=== PATIENT | female | born 1990 ===

== ENCOUNTER 2018-02-08 02:45 | Outpatient (CLI) | payer MEDICAID ==
[~2018-02-08] VITALS: Ht 165.1 cm; Wt 83.9 kg
[2018-02-08] MEDS ORDERED: NIFEdipine 10 MG CAP PO ONE ×2 (03:25→03:39)
[2018-02-08] MEDS ORDERED: TERBUTALINE SULF 1 MG/ML VIAL SUBQ PRN (03:25)
[2018-02-08] MEDS: LR(*) 1000 ML BAG 1,000 ML IV PRN ×2 (03:25→03:48)
[2018-02-08] MEDS ORDERED: TERBUTALINE SULF 1 MG/ML VIAL ONE (03:38)
[2018-02-08 05:00] VITALS: BP 120/73; Ht 165.1 cm; Wt 83.9 kg
[2018-02-11] MEDS ORDERED: PER PO ×2 (01:58→01:59)
== END 2018-02-08 05:40 | disposition home or self-care (01) ==
LOC: L&D 02:45 → OB 02:45 → UNDOADMOB 02:45 → UNDODISOB 05:40 → L&D 05:40 → EDSTATUS 02-10 07:30
PROVIDERS: ATTEND Obstetrics & Gynecology
DX: O47.1 False labor at or after 37 completed weeks of gestation (principal); Z3A.39 39 weeks gestation of pregnancy
CPT/HCPCS: 59025; 81001; 96372; G0463; J3105; J7120; 99213; G0378; G0379

== ENCOUNTER 2018-02-08 21:45 | Inpatient (IN) | payer MEDICAID ==
[~2018-02-08] VITALS: Ht 165.1 cm; Wt 83.0 kg
[2018-02-08 05:00] VITALS: Ht 165.1 cm; Wt 83.0 kg
[2018-02-08] MEDS ORDERED: OXYTOCIN 30 UNIT/D5LR 500 ML 500 ML IV PRN (22:42)
[2018-02-08] MEDS ORDERED: LR(*) 1000 ML BAG 1,000 ML ONE (22:42)
[2018-02-08] MEDS ORDERED: LR(*) 1000 ML BAG 1,000 ML IV SCH (22:42)
[2018-02-08] MEDS ORDERED: FAMOTIDINE(*) 20MG/50ML PREMIX 50 ML IVPB PRN (22:42)
[2018-02-08] MEDS ORDERED: cefOXitin/DEX(*) 2GM/50ML PREM 50 ML IVPB PRN (22:45)
[2018-02-08] MEDS ORDERED: METOCLOPRAMIDE 10 MG/2 ML SDV IVP PRN (22:45)
[2018-02-08] MEDS ORDERED: FENTANYL/ROPIVACAINE 100 ML BAG EPI PRN (22:45)
[2018-02-08] MEDS ORDERED: BUPIVACAINE 0.5% INJ 30ML VIAL EPI PRN (22:45)
[2018-02-08] MEDS ORDERED: ePHEDrine 25 MG/5 ML DISP.SYR IVP PRN (22:45)
[2018-02-08] MEDS ORDERED: BUPIVACAINE 0.25% MPF INJ EPI PRN (22:45)
[2018-02-08] MEDS ORDERED: LIDOCAINE 1% LOCAL 300 MG/30ML INJ PRN (22:45)
[2018-02-08] MEDS ORDERED: LIDOCAINE/SOD BICARB 8.4% SYR SC PRN (22:45)
[2018-02-08] MEDS ORDERED: fentaNYL CITR 100 MCG/2 ML AMP IVP PRN (22:45)
[2018-02-08] MEDS ORDERED: LIDO/EPI 2% MPF 1:200,000 20ML EPI PRN (22:45)
[2018-02-08] MEDS ORDERED: EPIDURAL KEYS XX PRN (22:45)
[2018-02-08] MEDS ORDERED: FLUSH 10 ML SYR IVP PRN (22:45)
[2018-02-08] MEDS ORDERED: fentaNYL CITR 100 MCG/2 ML AMP IT PRN (22:45)
[2018-02-08] MEDS ORDERED: LIDOCAINE/PF 2% 200MG/10ML AMP 200 MG/10 ML AMPUL EPI PRN (22:45)
--- NOTE | 2018-02-08 22:52 | History & Physical ---
History of Present Illness Age of Patient: 27 : 2 Para or TPAL: 1001 EDC per LMP: Feb 11, 2018 EDC per U/S: Feb 14, 2018 Estimated Gestational Age: 39.4 Chief Complaint Painful contractions History of Present Illness Pt is a 27 y/o @ 39-4/7 weeks gestation who presents to L&D with a chief complaint of contractions. Pt reports contractions starting a few hours ago. Reports no loss of amniotic fluid. No vaginal bleeding. History Patient's Blood Type: AB Negative Rubella Status: Immune Group B Strep Screen: Negative Obstetrical History: Failure to progress. Prior C/S X 1 Past Medical History: PCN allergy, but unknown reaction Social History: 1/2 pack per day. aileen Med Rec Home Meds No Active Prescriptions or Reported Meds Review of Systems All Systems Reviewed/Normal: Yes, Except as Noted Constitutional: No Fever, No Weight Loss, No Weight Gain, No Chills, No Night Sweats, No Other Neurological: No Syncope, No Confusion, No Weakness, No Dizziness, No Slurred Speech, No Other Eyes: No Vision Change, No Loss of Vision, No Photophobia, No Other ENT: No Hearing Loss, No Sinus Congestion, No Sore Throat, No Ear Ache, No Tinnitus, No Other Cardiovascular: No Chest Pain, No Palpitations, No Orthostatic Hypotension, No Other Respiratory: No Shortness of Breath, No Cough, No Wheezing, No Other Gastrointestinal: No Nausea, No Vomiting, No Diarrhea, No Dysphagia, No Constipation, No Early Satiety, No Hematemesis, No Hematochezia, No Melena, No Abdominal Pain, No Other Genitourinary: No Dysuria, No Hematuria, No Urinary Incontinence, No Other Musculoskeletal: No Pain, No Sprain, No Strain, No Impaired Mobility, No Other Psychiatric: No Depression, No Anxiety, No Other Exam General Exam General Apperance: Alert/Awake/No Acute Distress Neuro: No Gross deficits Eyes: Normal Extraocular Movement & Vison ENT: Normal Cardiovascular: Regular Rate and Rhythm Respiratory: No Respiratory Distress, Clear to Auscultation Abdomen: Soft, Non-Tender, Non-Distended : Normal Musculoskeletal: No Weakness/Pain Extremities: No Cyanosis,Clubbing or Edema Integumentary: Skin Intact without Lesions or Rash Psychological: Alert & Oriented X3, Appropriate Mood & Affect Cervical Dialation: 2 Cervical Effacement (%): 80 Cervical Consistency: Soft Cervical Position: Anterior Station: -2 Presentation: Vertex Uterine Contractions(Q min): 5 Uterine Contraction Strength: Moderate UC Resting Tone: Soft Fetus Feeling Movement?: Yes Heart Tones: 135 Heart Tone Variabilty: Moderate FHT Accelerations: 15X15 FHT Decelerations: None FHT Category: I Medical Decision Making Pre-Admit Course Medical Record Review: Yes VTE Prophylasis: Adult Deep Vein Thrombosis/Pulmonary: No Assessment and Plan 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 D/W Dr. Sainz who will attend delivery. Pt care by W. (2) Spontaneous onset of labor STEPHEN LANZA DO Feb 08, 2018 22:52
[2018-02-08 23:04] LABS: PLATELET COUNT, AUTOMATED 200 K/uL (150-450)
[2018-02-08] MEDS ORDERED: MORPHINE PF 5 MG/10 ML AMP ONE (23:04)
[2018-02-08] MEDS ORDERED: ePHEDrine 25 MG/5 ML DISP.SYR IVP ONE (23:21)
[2018-02-08] MEDS ORDERED: OXYTOCIN 10 UNIT/ML SDV ONE ×2 (23:30)
[2018-02-08] MEDS ORDERED: MEPERIDINE 50 MG/ML SYR ONE (23:53)
[2018-02-09] VITALS (8 sets, daily range): BP systolic 110–132; BP diastolic 66–88
[2018-02-09] MEDS ORDERED: OXYTOCIN 10 UNIT/ML SDV ONE (00:28)
[2018-02-09] MEDS ORDERED: KETOROLAC 30 MG/ML VIAL ONE (00:28)
[2018-02-09] MEDS ORDERED: MEASLES,MUMP,RUBELLA VAC 0.5ML SC ONE (00:30)
[2018-02-09] MEDS ORDERED: ONDANSETRON 4 MG/2 ML VIAL IV PRN (00:30)
[2018-02-09] MEDS ORDERED: ACETAMINOPHEN 325 MG TAB PO PRN (00:30)
[2018-02-09] MEDS ORDERED: ZOLPIDEM TARTRATE 5 MG TAB PO PRN (00:30)
[2018-02-09] MEDS ORDERED: DLR(*) 1000 ML BAG 1,000 ML IV PRN (00:30)
[2018-02-09] MEDS ORDERED: PROMETHAZINE 25 MG/ML 1 ML AMP IVP PRN (00:30)
[2018-02-09] MEDS ORDERED: OXYTOCIN 30 UNIT/D5LR 500 ML 500 ML IV PRN (00:30)
[2018-02-09] MEDS ORDERED: INFLUENZA VIRUS VAC 0.5 ML SYR IM ONE (00:30)
[2018-02-09] MEDS ORDERED: LANOLIN OINT 7 GM TUBE TP PRN (00:30)
[2018-02-09] MEDS ORDERED: SIMETHICONE 80 MG CHEW CHEW PRN (00:30)
[2018-02-09] MEDS ORDERED: DIPHTH/TETANUS/ACEL. PERTUSSIS IM ONE (00:30)
--- NOTE | 2018-02-09 00:41 | Post Operative Note ---
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
[2018-02-09] MEDS ORDERED: NALBUPHINE HCL 10 MG/ML AMP IVP PRN (02:35)
[2018-02-09] MEDS ORDERED: ePHEDrine 25 MG/5 ML DISP.SYR IVP PRN (02:35)
[2018-02-09] MEDS ORDERED: NALOXONE HCL 0.4 MG/ML VIAL IV PRN (02:35)
[2018-02-09] MEDS ORDERED: diphenhydrAMINE 25 MG CAP PO PRN (02:35)
--- NOTE | 2018-02-09 02:35 | Anesthesia OB Pre-Anes Eval ---
History of Present Illness Anesthesia Start Date: Feb 08, 2018 Anesthesia Start Time: 23:10 OB Anesthesia Diagnosis: repeat c/section (in active labor) Complications: None known EDC: Feb 11, 2018 : 2 Para: 1 Vital Signs: Vital Signs Date Time Temp Pulse Resp B/P (MAP) Pulse Ox O2 Delivery O2 Flow Rate FiO2 02/09/18 01:30 99.8 81 132/87 (102) 96 Room Air 02/09/18 00:45 16 Pain Ratin Heart Tones: WNL Result Diagram: 02/08/18 2255 Weight (Pounds): 185 BMI Calculated: 30.78 Past Medical History Medical History: no pertinent history Surgical History: Previous Anesthesia: epidural Attended Childbirth Classes?: No Hx Anesthesia Reactions: No Hx Family Anesthesia Reaction: No Home Meds No Active Prescriptions or Reported Meds Allergies: Coded Allergies: Penicillins (Unverified Allergy, Unknown, unknown, 02/08/18) Anesthesia OB ROS Neurological: No migraines/headaches, No seizures, No neuropathy ENT: Denies Tooth caps, Denies Loose teeth, Denies Chipped teeth, Denies Dentures, Denies Bridges, Denies Retainers, Denies Veneers, Denies Implants, Denies Tongue ring Pulmonary: No asthma, No smoker (pks/day/yrs) Airway Class: ll Cardiovascular ROS: No edema, No arrhythmia GI ROS: other Last Solids Date: Feb 08, 2018 Last Solids Time: 19:00 ROS: No Herpes, No STD(s), No Liver Disease, No Renal Disease Endocrine ROS: No diabetes, No gestational diabetes, No thyroid disorder Musculoskeletal ROS: No low back pain, No low back injury, No scoliosis ASA Classification: 2, E Assessment and Plan Anesthesia Plan: CSE Assessment While starting IV for pt., explained spinal block risks and benefits explained to patient's satisfaction. General anesthesia risks and benefits explained to patient's satisfaction. Anesthesia Stop Day: Feb 09, 2018 Anesthesia Stop Time: 00:45 ADRIA ALMEIDA CRNA Feb 09, 2018 02:35
--- NOTE | 2018-02-09 03:59 | OPERATIVE REPORT 1 ---
EVENT DATE: February 08, 2018 SURGEON: Curt Sainz MD ANESTHESIA: Spinal, Cyndi Thorpe CRNA KEYING MACHINE OPERATOR: Juan Carlos Moralez DO PREOPERATIVE DIAGNOSIS 1. Previous section. 2. Spontaneous labor. 3. Desired repeat low transverse section. POSTOPERATIVE DIAGNOSIS 1. Previous section. 2. Spontaneous labor. 3. Desired repeat low transverse section. PROCEDURE PERFORMED Repeat low transverse via Pfannenstiel skin incision. ESTIMATED BLOOD LOSS 500 mL. FLUIDS 1800 mL IV crystalloid. URINE OUTPUT 300 mL. INDICATIONS Non-pleasant 27-year-old , with her first delivery done by section , presented with painful contractions on February 07, 2018 that resolved with IV fluids and tocolytics. she reported, however, that they resumed today and became painful with change in her cervical exam compared to the exam prior. She was scheduled for a repeat C section this upcoming Tuesday. She was therefore consented for delivery and her procedure now, considering her cervix is changing and active labor. PROCEDURE IN DETAIL The patient was brought to the operating room with a working IV, and prophylactic antibiotics had been administered. Spinal anesthetic was placed. She was placed in the dorsal supine position with a leftward tilt and prepped and draped in the usual sterile fashion. Using the knife, a Pfannenstiel skin incision was made, dissecting out the previous scar, carried through to the underlying rectus fascia. The fascia was nicked in the midline and extended laterally with Odng scissors. The rectus muscles were dissected off superiorly and inferiorly and then in the midline. Peritoneum was entered bluntly and extended superiorly and inferiorly, the rectus muscle along its entire length. The peritoneum was put on lateral stretch. Bladder blade was inserted, and the vesicouterine peritoneum was elevated and entered sharply and extended laterally. Bladder flap was created digitally. This exposed the lower uterine segment, which received a low transverse incision with the scalpel and carried through to the intra-amniotic space. There was clear fluid upon amniotomy. The incision was extended laterally with blunt traction. A hand was inserted. The infant's head was elevated to the incision. Fundal pressure was applied, and the infant's head delivered atraumatically. Mouth and nose were bulb suctioned. Further fundal pressure and manipulation affected delivery of the shoulders, followed by the remainder of the without difficulty. The cord was clamped, cut, and the infant was passed to the waiting resuscitation team. Cord sample was obtained. Placenta was delivered manually. Uterus was exteriorized and cleared of clots and debris. Doan clamps were placed for hemostasis while the uterine repair was performed with a #1 Monocryl and a running locking stitch. A second suture of the same type was used to imbricate the first layer, completing a two- layer closure. This was hemostatic upon completion. The uterus was then returned to the abdomen. Bilateral pelvic gutters were irrigated, swept clear of clots and debris. The incision was again inspected in situ, found to be hemostatic. The parietal peritoneum was repaired using a 3-0 Vicryl in a running non-locking stitch. Rectus muscles were reapproximated in the midline with the same stitch. A few capillary bleeders were cauterized, and the rectus fascia was then repaired with an #0-Vicryl in a running non-locking stitch. Subcuticular space was irrigated, swept clear of clots and debris. Capillary bleeders were cauterized while the space was closed with 3-0 Vicryl plus and a running non-locking stitch. Skin was repaired with a 4-0 Monocryl simple subdermal and covered with Dermabond skin adhesive. She tolerated the procedure well. Sponge, lap, needle and instrument counts were all correct x three. She was taken to Recovery in stable condition. CALEB
[2018-02-09] MEDS ORDERED: KETOROLAC 30 MG/ML VIAL IVP SCH (06:00)
[2018-02-09] MEDS ORDERED: FAMOTIDINE(*) 20MG/50ML PREMIX 50 ML IVPB ONE (06:06)
[2018-02-09] MEDS ORDERED: cefOXitin/DEX(*) 2GM/50ML PREM 50 ML IVPB ONE (06:06)
[2018-02-09] MEDS ORDERED: METOCLOPRAMIDE 10 MG/2 ML SDV ONE (06:06)
[2018-02-09] MEDS: KETOROLAC 30 MG/ML VIAL IVP SCH ×3 (08:27→20:00)
[2018-02-09] MEDS: DOCUSATE CALCIUM 240 MG CAP PO SCH ×2 (08:27→21:31)
[2018-02-09] MEDS: FAMOTIDINE 20 MG TAB PO SCH ×2 (08:27→21:31)
--- NOTE | 2018-02-09 11:07 | OB/GYN Progress Note ---
OB Subjective Progress Notes Subjective Doing well. Pain controlled. Tejeda still in place. GI: NEG Nausea Pain: Mild OB Objective Physical Exam Vital Signs Date Time Temp Pulse Resp B/P (MAP) Pulse Ox O2 Delivery O2 Flow Rate FiO2 02/09/18 07:10 96 Nasal Cannula 1.5 02/09/18 01:30 99.8 81 132/87 (102) 02/09/18 00:45 16 General Appearance: Alert/Awake/No Acute Distress Neurological: No Gross deficits Eyes: Normal Extraocular Movement & Vison Cardiovascular: Normal Rhythm & Peripheral Pulses, Regular Rate and Rhythm Respiratory: No Respiratory Distress, Clear to Auscultation Abdomen: Soft, Non-Tender, Non-Distended, Fundus Firm, Non-Tender Extremities: No Cyanosis,Clubbing or Edema Integumentary: Skin Intact without Lesions or Rash Psychological: Alert & Oriented X3, Appropriate Mood & Affect Result Diagram: 02/08/18 2259 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
[2018-02-10 01:00] VITALS: BP 129/81
[2018-02-10] MEDS: IBUPROFEN 800 MG TAB PO SCH ×3 (05:15→17:59)
[2018-02-10 06:25] LABS: PLATELET COUNT, AUTOMATED 151 K/uL (150-450)
[2018-02-10 08:40] VITALS: BP 144/86
[2018-02-10] MEDS: DOCUSATE CALCIUM 240 MG CAP PO SCH (09:33)
[2018-02-10] MEDS: FAMOTIDINE 20 MG TAB PO SCH (09:33)
--- NOTE | 2018-02-10 10:08 | OB/GYN Progress Note ---
OB Subjective Progress Notes Subjective Doing well. Ambulating and tolerating regular diet. Voiding well. Anemia discussed but asymptomatic. GI: NEG Nausea : Voiding Well Pain: Mild OB Objective Physical Exam Vital Signs Date Time Temp Pulse Resp B/P (MAP) Pulse Ox O2 Delivery O2 Flow Rate FiO2 02/10/18 08:40 97.9 85 16 144/86 (105) 94 Room Air 02/09/18 20:00 1.0 Intake and Output 02/11/18 07:00 Output Total 450 ml Balance -450 ml Output Urine Total 450 ml # Voids 1 General Appearance: Alert/Awake/No Acute Distress Neurological: No Gross deficits Eyes: Normal Extraocular Movement & Vison Cardiovascular: Normal Rhythm & Peripheral Pulses, Regular Rate and Rhythm Respiratory: No Respiratory Distress, Clear to Auscultation Abdomen: Soft, Non-Tender, Non-Distended, Fundus Firm, Non-Tender Extremities: No Cyanosis,Clubbing or Edema Integumentary: Skin Intact without Lesions or Rash Psychological: Alert & Oriented X3, Appropriate Mood & Affect Result Diagram: 02/10/18 0601 Assessment and Plan Problems: (1) care and examination immediately after delivery Assessment & Plan: Pt stable and doing well. Recommend see how she feels today and could go home tonight if desires. (2) History of delivery (3) Anemia due to acute blood loss Assessment & Plan: Reviewed and discussed continuing her PNVs and supplemental iron. Discussed constipation as consequence and recommended fluids, stool softeners, and laxative. KD RUBY MD Feb 10, 2018 10:08
[2018-02-10] MEDS ORDERED: IBUP800T37 PO (10:09)
[2018-02-10] MEDS ORDERED: PER PO ×2 (10:09→18:02)
[2018-02-10 13:40] VITALS: BP 149/79
--- NOTE | 2018-02-10 13:46 | Anesthesia Post Eval Note ---
Anesthesia Post Eval Note Vital Signs Date Time Temp Pulse Resp B/P (MAP) Pulse Ox O2 Delivery O2 Flow Rate FiO2 02/10/18 13:40 98.4 83 149/79 (102) 92 Room Air 02/10/18 08:40 16 02/09/18 20:00 1.0 Pt able to participate in Eval: Yes Cardiovascular Status: Satisfactory Respiratory Status: Satisfactory Pain Managment: Satisfactory PO Nausea/Vomiting: Satisfactory Temperature Management: Satisfactory Mental Status: Satisfactory, Alert, Oriented X3 Post-Op Hydration Status: Satisfactory, Tolerating PO Well, Voiding w/o Difficulty Anesthesia Type: SAB Anesthesia Tolerance: Tolerated procedure well without apparent anesthetic complications. LP site clear, no redness or edema. Denies headache or any residual paresthesia. Vital Signs Stable, Patient comfortable and condition stable. ADRIA ALMEIDA FLOOR REPRESENTATIVE Feb 10, 2018 13:46
[2018-02-10 16:30] VITALS: BP 133/88
[2018-02-10 19:12] VITALS: BP 121/80
[2018-02-11] MEDS ORDERED: PER PO ×2 (01:58→01:59)
== END 2018-02-10 19:53 | disposition home or self-care (01) | DRG 765 ==
LOC: OB 21:45
PROVIDERS: ADMIT Student in an Organized Health Care Education/Training Program; ATTEND Student in an Organized Health Care Education/Training Program
PROC: 3E0334Z Introduction of Serum, Toxoid and Vaccine into Peripheral Vein, Percutaneous Approach (ICD-10-PCS; 2018-02-08)
PROC: 10D00Z1 Extraction of Products of Conception, Low, Open Approach (ICD-10-PCS; principal; 2018-02-08 23:10)
DX: O34.211 Maternal care for low transverse scar from previous cesarean delivery (principal); D62 Acute posthemorrhagic anemia; O36.0130 Maternal care for anti-D [Rh] antibodies, third trimester, not applicable or unspecified; O90.81 Anemia of the puerperium; Z88.0 Allergy status to penicillin; Z3A.39 39 weeks gestation of pregnancy; Z37.0 Single live birth; Z87.891 Personal history of nicotine dependence
CPT/HCPCS: 36415; 81001; 85014; 85018; 85025; 85461; 86850; 86870; 86900; 86901; J0694; J1885; J2175; J2270; J2590; J2765; J2791; J3490